=== PATIENT | female | born 1995 | race Caucasian/White ===

== ENCOUNTER 2022-08-01 19:51 | Emergency (ER) | payer SELFPAY ==
[2022-08-01] MEDS ORDERED: Ketorolac 60 MG/2 ML SDV IM ONE (20:12)
[2022-08-01] MEDS ORDERED: Amoxicillin 500 MG Cap PO ONE (20:13)
== END 2022-08-01 20:50 | disposition home or self-care (01) ==
LOC: KA.ED 19:51
DX: K04.7 Periapical abscess without sinus (principal); K03.81 Cracked tooth
CPT/HCPCS: 96372; 99283; A9270-GY; J1885